=== PATIENT | female | born 1945 | race Caucasian/White ===

== ENCOUNTER 2019-07-15 10:53 | Day surgery (SDC) | payer MEDICARE, BC ==
[~2019-07-15 10:53] MED LIST: Midazolam 1 MG/ML 2 ML SDV ONE; Propofol 200 MG/20 ML SDV ONE
[2019-07-15] MEDS ORDERED: Lactated Ringers 1,000 ML IV SCH (11:00)
[2019-07-15] MEDS ORDERED: Sodium Chloride 0.9% 10 ML Syringe FLUSH PRN (11:00)
--- NOTE | 2019-07-15 12:29 | PCM.HPR ---
H & P Addendum review - H & P Addendum Review Date of Original H & P: 06/17/19 Date Reviewed: 07/15/19 Time Reviewed: 12:29 Patient was Examined: No Changes
[2019-07-15] MEDS ORDERED: Midazolam 1 MG/ML 2 ML SDV ONE (12:37)
[2019-07-15] MEDS ORDERED: Propofol 200 MG/20 ML SDV ONE (12:37)
--- NOTE | 2019-07-15 13:18 | PCM.OPNOTE ---
- General Post-Op/Procedure Note Date of Surgery/Procedure: 07/15/19 Operative Procedure(s): Colonoscopy Findings: Normal Pre Op Diagnosis: Hx Polyps Post-Op Diagnosis: Same Anesthesia Technique: LEAH Primary Surgeon: Ayden Mccauley Anesthesia Provider: Jena Mejia Complications: None Condition: Good
[2019-07-15 13:29] VITALS: PULSE 63
[2019-07-15 13:39] VITALS: BP 159/62
--- NOTE | 2019-07-16 09:12 | OR ---
Date of Procedure: 07/15/2019 PREOPERATIVE DIAGNOSIS: History of colon polyps. POSTOPERATIVE DIAGNOSIS: Normal colonoscopy. PROCEDURE: Colonoscopy. ANESTHESIA: IV sedation. PROCEDURE IN DETAIL: The patient was brought to the procedure room where she was placed on her left side and IV sedation administered. Digital rectal exam was performed, which was normal. The colonoscope was inserted and advanced to the level of the cecum with difficulty getting through the ascending colon requiring pressure on the abdomen and changing to the supine position. The appendiceal lumen and ileocecal valve were identified. Upon withdrawing the scope, the ascending, transverse, and descending colon were normal in appearance. Sigmoid colon and rectum were normal. Retroflexion was normal. Air was removed and the scope withdrawn. Patient tolerated the procedure well and returned to recovery in stable condition. Recommended routine colon screening again in 5 years. DHARMESH MONAHAN MD /[id number]
== END 2019-07-15 14:55 | disposition home or self-care (01) ==
LOC: LL.SDS 10:53
PROVIDERS: ATTEND Surgery
DX: Z12.11 Encounter for screening for malignant neoplasm of colon (principal); K21.9 Gastro-esophageal reflux disease without esophagitis; I25.10 Atherosclerotic heart disease of native coronary artery without angina pectoris; R53.83 Other fatigue; D50.9 Iron deficiency anemia, unspecified; R51 Headache; R00.1 Bradycardia, unspecified; I65.23 Occlusion and stenosis of bilateral carotid arteries; G47.33 Obstructive sleep apnea (adult) (pediatric); E78.5 Hyperlipidemia, unspecified; I11.0 Hypertensive heart disease with heart failure; I50.9 Heart failure, unspecified; M19.90 Unspecified osteoarthritis, unspecified site; Z86.010 Personal history of colon polyps; Z88.8 Allergy status to other drugs, medicaments and biological substances; Z88.2 Allergy status to sulfonamides; Z88.1 Allergy status to other antibiotic agents; Z99.89 Dependence on other enabling machines and devices; Z79.899 Other long term (current) drug therapy; Z79.82 Long term (current) use of aspirin
CPT/HCPCS: 00812; J2250; J2704; J7120

== ENCOUNTER 2019-08-02 13:47 | Emergency (ER) | payer MEDICARE, BC ==
[2019-08-02 13:59] VITALS: BP 120/50; PULSE 67
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
== END 2019-08-02 15:15 | disposition home or self-care (01) ==
LOC: LL.ED 13:47
DX: H11.32 Conjunctival hemorrhage, left eye (principal); I10 Essential (primary) hypertension; I25.2 Old myocardial infarction; F32.9 Major depressive disorder, single episode, unspecified; Z88.1 Allergy status to other antibiotic agents; Z88.2 Allergy status to sulfonamides; Z79.899 Other long term (current) drug therapy; Z79.82 Long term (current) use of aspirin; Z86.711 Personal history of pulmonary embolism
CPT/HCPCS: 99282; 99283

== ENCOUNTER 2021-08-29 10:46 | Observation (INO) | payer MEDICARE, BC ==
[2021-08-29] MEDS ORDERED: Aspirin 81 MG Tab.Chew PO ONE (11:10)
[2021-08-29 11:40] LABS: ANION GAP 6.4 meq/L (7-15); CHLORIDE,CL 105 mmol/L (98-107); SODIUM,NA 140 mmol/L (136-145)
[2021-08-29] MEDS ORDERED: Furosemide 20 MG Tab PO PRN (12:58)
[2021-08-29] MEDS: Enoxaparin 40 MG/0.4 ML Syringe SUBCUT SCH (13:43)
[2021-08-29] MEDS: Gabapentin 300 MG Cap PO SCH ×2 (17:04→20:49)
[2021-08-29] MEDS ORDERED: Multivitamin Tab PO SCH (18:00)
[2021-08-29] MEDS ORDERED: Aspirin 81 MG Tab.EC PO SCH (20:00)
[2021-08-29] MEDS ORDERED: Famotidine 20 MG Tab PO SCH (20:00)
[2021-08-29] MEDS ORDERED: FLUoxetine 20 MG Cap PO SCH (20:00)
[2021-08-30 07:06] LABS: CHLORIDE,CL 107 mmol/L (98-107); SODIUM,NA 141 mmol/L (136-145)
[2021-08-30 07:07] VITALS: BP 129/57; PULSE 54
[2021-08-30] MEDS: Enoxaparin 40 MG/0.4 ML Syringe SUBCUT SCH (07:35)
[2021-08-30] MEDS ORDERED: Multivitamin Tab PO SCH (08:00)
[2021-08-30] MEDS ORDERED: amLODIPine 5 MG Tab PO SCH (08:00)
[2021-08-30] MEDS ORDERED: Isosorbide Mononitrate 30 MG Tab.ER PO SCH (08:00)
[2021-08-30] MEDS ORDERED: Losartan 50 MG Tab PO SCH (08:00)
[2021-08-30] MEDS ORDERED: Calcium Carbonate 750 MG Tab.Chew PO SCH (08:00)
[2021-08-30] MEDS ORDERED: Ascorbic Acid 500 MG Tab PO SCH (08:00)
[2021-08-30] MEDS ORDERED: Cholecalciferol (Vitamin D3) 25 MCG Tab PO SCH (08:00)
== END 2021-08-30 09:26 | disposition home or self-care (01) ==
LOC: LL.ED 10:46 → LL.MS 11:58
PROVIDERS: ADMIT Physician Assistant; ATTEND Physician Assistant
DX: R07.9 Chest pain, unspecified (principal); I25.2 Old myocardial infarction; I10 Essential (primary) hypertension; Z88.2 Allergy status to sulfonamides; Z88.8 Allergy status to other drugs, medicaments and biological substances; Z79.899 Other long term (current) drug therapy; Z79.82 Long term (current) use of aspirin; Z98.890 Other specified postprocedural states
CPT/HCPCS: 36415; 71045; 80053; 83735; 83880; 84100; 84443; 84484; 85025; 85610; 85730; 86140; 93005; 93010; 96372; 99217; 99220; 99285; A9270; G0378; J1650